=== PATIENT | female | born 1990 | race Caucasian/White ===

== ENCOUNTER 2020-09-06 06:05 | Inpatient (IN) | payer BC ==
--- NOTE | 2020-09-05 19:15 | P.HPOB ---
History of Present Illness H&P Date: 09/05/20 Chief Complaint: IUGR, Oligohydramnios This is a 30 y.o. female, 1, para 0, with an estimated date of confinement of 09/27/2020, estimated gestational age of 37-0/7 weeks who presents for induction of labor due to asymmetric IUGR and oligohydramnios. She was diagnosed with an MARY JO of 6 cm about 2 weeks ago, and it went down to 5 cm this past week. There is a concern for asymmetric IUGR with head measurments greater than 2 SD less than expected. Last US showed EFW of 5#8oz(23%). She has done NSTs and feels good kick counts. labs: Hepatitis B surface antigen-neg RPR-NR Rubella-immune Blood type- O+ Antibody screen-neg HIV-NR Hemoglobin-13.4 Random glucose-78 Quad-neg GBS-neg 1 hr. GTT-98 Review of Systems Constitutional: Denies chills, Denies fever Ears, nose, mouth and throat: Denies headache, Denies sore throat Cardiovascular: Denies chest pain, Denies shortness of breath Respiratory: Denies cough Genitourinary: Reports pelvic pain, Reports , Denies dysuria, Denies hematuria Musculoskeletal: Reports low back pain, Denies myalgias Integumentary: Denies pruritus, Denies rash Neurological: Denies numbness, Denies weakness Endocrine: Denies fatigue, Denies weight change Past Medical History Past Medical History: No Reported History History of Any Multi-Drug Resistant Organisms: None Reported Past Surgical History: No Surgical Hx Reported Past Anesthesia/Blood Transfusion Reactions: No Reported Reaction Past Psychological History: No Psychological Hx Reported Smoking Status: Never smoker Past Alcohol Use History: None Reported Past Drug Use History: None Reported - Past Family History Mother Family Medical History: No Reported History Medications and Allergies Home Medications Medication Instructions Recorded Confirmed Type Wkw-Rspw-Gccij Acid 1 cap PO DAILY 09/05/20 09/05/20 History [-U Capsule (formulary)] Allergies Allergy/AdvReac Type Severity Reaction Status Date / Time No Known Allergies Allergy Verified 09/05/20 19:12 Exam Osteopathic Statement: *. No significant issues noted on an osteopathic structural exam other than those noted in the History and Physical/Consult. HEENT: within normal limits Heart: regular rate and rhythm Lungs: clear to auscultation bilaterally Abdomen: Cervix: 1 cm/70%/-2 FHTs: 140's by doppler Extremities: neg. Homans. Assessment and Plan (1) with 37 weeks completed gestation Status: Acute Code(s): Z3A.37 - 37 WEEKS GESTATION OF SNOMED Code(s): 31965965 (2) IUGR (intrauterine growth restriction) Status: Acute Code(s): [id number] - SNOMED Code(s): 50231931 Plan: Proceed with oxytocin induction of labor. Expectant management. Epidural anesthesia if desired.
[2020-09-06] MEDS ORDERED: OXYTOCIN 10 UNIT/ML 1 ML VIAL IM PRN (06:34)
[2020-09-06] MEDS ORDERED: CARBOPROST TROMETHAMINE 250 MCG/ML 1 ML AMP IM PRN (06:34)
[2020-09-06] MEDS ORDERED: LIDOCAINE 1% (10MG/ML) FOR IV START INTRADERMA PRN (06:34)
[2020-09-06] MEDS ORDERED: OXYTOCIN 30 UNITS/500 ML NS 30 UNIT in SALINE 1 500ML.BAG IV SCH ×2 (06:34→16:59)
[2020-09-06] MEDS ORDERED: METHYLERGONOVINE 0.2 MG/ML 1 ML AMP IM PRN (06:34)
[2020-09-06] MEDS ORDERED: LIDOCAINE 0.5% (PF) 5 MG/ML (50 ML SDV) SQ PRN (06:34)
[2020-09-06] MEDS ORDERED: TERBUTALINE 1 MG/ML VIAL SQ PRN (06:34)
[2020-09-06 06:49] LABS: Basophils # (A) 0.1 k/uL (0-0.2); Basophils % (A) 0 %; Eosinophils # (A) 0.2 k/uL (0-0.7); Eosinophils % (A) 1 %; HCT 34.4 % (34.0-46.0); HGB 12.3 gm/dL (11.4-16.0); Lymphocytes # (A) 2.8 k/uL (1.0-4.8); Lymphocytes % (A) 19 %; MCH 31.3 pg (25.0-35.0); MCHC 35.6 g/dL (31.0-37.0); MCV 87.8 fL (80.0-100.0); Mean Platelet Volume 8.5; Monocytes % (A) 7 %; Neutrophils # (A) 10.8 k/uL (1.3-7.7); Neutrophils % (A) 72 %; Platelet Count 225 k/uL (150-450); RBC 3.92 m/uL (3.80-5.40); RDW 12.6 % (11.5-15.5); WBC 14.9 k/uL (3.8-10.6)
[2020-09-06] MEDS: LACTATED RINGERS 1,000 ML IV SCH ×3 (06:50→15:33)
[2020-09-06] MEDS ORDERED: fentaNYL (PF) 50 MCG/ML 5 ML AMP ONE (13:55)
[2020-09-06] MEDS ORDERED: ROPIVACAINE 5MG/ML 20ML VIAL ONE (13:55)
[2020-09-06] MEDS ORDERED: SODIUM CHLORIDE 0.9% 100 ML BAG ONE (13:55)
[2020-09-06] MEDS ORDERED: diphenhydrAMINE 25 MG CAP PO PRN (16:59)
[2020-09-06] MEDS ORDERED: ZOLPIDEM 5 MG TAB PO PRN (16:59)
[2020-09-06] MEDS ORDERED: LANOLIN CREAM 5 GM TUBE TOPICAL PRN (16:59)
[2020-09-06] MEDS ORDERED: diphenhydrAMINE 50 MG/ML 1 ML VIAL IVP PRN ×2 (16:59)
[2020-09-06] MEDS ORDERED: BENZOCAINE/MENTHOL SPRAY 1 GM/SPRAY AEROSOL TOPICAL PRN (16:59)
[2020-09-06] MEDS ORDERED: SIMETHICONE 80 MG CHEWABLE PO PRN (16:59)
[2020-09-06] MEDS ORDERED: ACETAMINOPHEN TAB 325 MG TAB PO PRN (16:59)
[2020-09-06] MEDS ORDERED: HYDROCORTISONE 2.5% RECTAL CREAM 30 GM TUBE RECTAL PRN (16:59)
[2020-09-06] MEDS ORDERED: diphenhydrAMINE 50 MG CAP PO PRN (16:59)
--- NOTE | 2020-09-06 17:20 | P.PROBDLV ---
Vaginal Delivery Note - . Vaginal Delivery Note: The patient progressed to complete dilation after oxytocin induction of labor and artificial rupture of membranes with clear fluid noted. She did receive epidural anesthesia while in labor. Once reaching complete, she began pushing. Infant's head came to a crown. With one further push, the 's head delivered across the perineum followed by the anterior shoulder. Nose and mouth were bulb suctioned. With one remaining push the remainder the easily de livered and was placed on mother's abdomen. Cord was clamped and cut and infant was taken to warmer for evaluation. A viable male is noted with scores of 7 at 1 minute and 9 at 5 minutes and weight of 5 lbs. 3 oz. Of note there is a cleft lip noted. This was not previously visualized on her anatomy scan at 19 weeks. Uterus contracted well after oxytocin was given and uterine massage was carried out. Inspection of the perineum revealed a small second-degree perineal laceration. This area was anesthetized with 1% lidocaine and then sutured with 3-0 Vicryl suture in the usual multilayer fashion. Estimated blood loss is approximately 200 mL's. Mother and are in stable condition. will be evaluated by lithographic artist due to the cleft lip.
[2020-09-06] MEDS: SENNOSIDES-DOCUSATE SODIUM 1 EACH TAB PO SCH (22:36)
[2020-09-06] MEDS: PRENATAL VIT-IRON-FOLIC ACID 1 EACH CAP PO SCH (22:37)
[2020-09-06] MEDS: IBUPROFEN 600 MG TAB PO SCH (22:37)
[2020-09-07] MEDS: IBUPROFEN 600 MG TAB PO SCH ×2 (05:33→14:34)
[2020-09-07 05:50] LABS: Basophils % (A) 0 %; Eosinophils # (A) 0.1 k/uL (0-0.7); Eosinophils % (A) 1 %; HCT 32.5 % (34.0-46.0); HGB 11.3 gm/dL (11.4-16.0); Lymphocytes % (A) 11 %; MCH 30.5 pg (25.0-35.0); MCHC 34.7 g/dL (31.0-37.0); Mean Platelet Volume 8.5; Monocytes # (A) 1.5 k/uL (0-1.0); Monocytes % (A) 8 %; Neutrophils # (A) 15.7 k/uL (1.3-7.7); Neutrophils % (A) 81 %; Platelet Count 212 k/uL (150-450); RBC 3.69 m/uL (3.80-5.40); RDW 12.5 % (11.5-15.5); WBC 19.5 k/uL (3.8-10.6)
--- NOTE | 2020-09-07 08:27 | P.PNOBGVD ---
Subjective - Subjective Principal diagnosis: Status post vaginal delivery day #1 Interval history: Patient is doing okay. She is a little emotional this morning. Baby has not been feeding well. Lochia is decreasing. Pain is minimal. Patient reports: Reports appetite normal, Reports voiding normally, Reports pain well controlled, Reports ambulating normally : bottle feeding Objective - Latest Vital Signs Latest vital signs: Vital Signs Temp Pulse Resp BP Pulse Ox 09/07/20 03:46 98.0 F 78 16 128/70 09/07/20 00:00 98.5 F 84 16 131/78 09/06/20 20:55 98.1 F 73 16 123/75 99 09/06/20 18:00 76 18 119/69 09/06/20 17:45 81 18 119/70 09/06/20 17:30 69 18 112/68 09/06/20 17:15 63 16 117/64 09/06/20 17:00 76 18 117/64 09/06/20 16:45 78 18 120/64 09/06/20 16:30 81 18 117/63 09/06/20 16:15 98.4 F 87 18 125/67 Intake and Output 09/06/20 09/07/20 09/07/20 22:59 06:59 14:59 Output Total 200 Balance -200 Output: Estimated Blood Loss 200 Other: # Voids 2 1 - Exam Extremities: Present: normal. Absent: tenderness Abdomen: Present: normal appearance, soft. Absent: distention, tenderness Uterus: Present: normal, firm. Absent: tenderness - Labs Labs: Abnormal Lab Results - Last 24 Hours (Table) 09/07/20 Range/Units 05:26 WBC 19.5 H (3.8-10.6) k/uL RBC 3.69 L (3.80-5.40) m/uL Hgb 11.3 L (11.4-16.0) gm/dL Hct 32.5 L (34.0-46.0) % Neutrophils # 15.7 H (1.3-7.7) k/uL Monocytes # 1.5 H (0-1.0) k/uL Assessment and Plan Assessment: Status post vaginal delivery day #1 (1) with 37 weeks completed gestation Current Visit: No Status: Acute Code(s): Z3A.37 - 37 WEEKS GESTATION OF SNOMED Code(s): 15332631 (2) IUGR (intrauterine growth restriction) Current Visit: No Status: Acute Code(s): [id number] - SNOMED Code(s): 94958529 Plan: Continue post care today. Will work on feeding today. Anticipate discharge home tomorrow.
[2020-09-07] MEDS: SENNOSIDES-DOCUSATE SODIUM 1 EACH TAB PO SCH (08:37)
[2020-09-07] MEDS: PRENATAL VIT-IRON-FOLIC ACID 1 EACH CAP PO SCH (08:38)
--- NOTE | 2020-09-07 13:25 | P.DS ---
Providers Date of admission: 09/06/20 06:05 Expected date of discharge: 09/07/20 Attending physician: Sara Hood Primary care physician: Stated None - Discharge Diagnosis(es) (1) with 37 weeks completed gestation Current Visit: No Status: Acute (2) IUGR (intrauterine growth restriction) Current Visit: No Status: Acute Hospital Course: This is a 30-year-old female 1 para 0 at 37-0/7 weeks who presented for induction of labor secondary to oligohydramnios and asymmetric intrauterine growth restriction. She underwent oxytocin induction of labor and delivered vaginally a viable male on 09/06/2020 with scores of 7 at 1 minute and 9 at 5 minutes and weight of 5 lbs. 3 oz. Baby was diagnosed with a cleft lip after delivery. He has had some feeding issues and is currently being transferred to [facility]. Moms bleeding has been minimal. Her pain is been well controlled with ibuprofen. Vital signs are stable. Abdomen is soft with fundus firm and nontender. Extremities show negative Homans. Impression is status post vaginal delivery day #1. Plan is to discharge home today. Routine instructions are given. She is advised follow-up in the office in 6 weeks for a check. She is advised to call the office if she has any further questions or concerns prior to her appointment time. She will be given a prescription for ibuprofen. She is planning to bottlefeed. Procedures: Oxytocin induction of labor Spontaneous vaginal delivery of a viable male on 09/06/2020 Patient Condition at Discharge: Stable Plan - Discharge Summary New Discharge Prescriptions: New Ibuprofen [Motrin] 600 mg PO Q6H #60 tab No Action Dbj-Ghln-Wfcvm Acid [-U Capsule (formulary)] 1 cap PO DAILY Discharge Medication List Cye-Kvzt-Xscur Acid [-U Capsule (formulary)] 1 cap PO DAILY 09/05/20 [History] Ibuprofen [Motrin] 600 mg PO Q6H #60 tab 09/07/20 [Rx] Follow up Appointment(s)/Referral(s): Sara Hood DO [Doctor of Osteopathic Medicine] - 10/26/20 11:30 am Activity/Diet/Wound Care/Special Instructions: Instructions 1. Do not begin any exercise program for 3 weeks. 2. Do not resume sexual relations for 3 weeks or longer if uncomfortable. 3. You may take tub baths or showers at any time. 4. You may use tampons if desired after 3 weeks. 5. Keep the area of episiotomy (stitches) clean and dry. 6. If you are not nursing, wear a good fitting, supportive bra during the day and limit fluid intake for at least 1 week to prevent breast engorgement. 7. Call the office, [phone], within the next week to make appointment for your 6 week checkup if it has not already been made. 8. Report any of the following occurrences to the doctor promptly: a. Heavy, excessive bleeding b. Chills, fever c. Burning or frequency of urination d. Pain or redness and breasts if nursing e. Increasing pain or swelling in episiotomy (stitches). In addition to the above instructions, the following additional should be followed: 1. No heavy lifting or straining (exercising) until after 6 week checkup. 2. Keep abdominal incision clean and dry: You may wear a dressing if more comfortable. 3. Make office appointment for 10 days after going home or as instructed by her doctor. Discharge Disposition: HOME SELF-CARE
[2020-09-07 14:34] VITALS: BP 128/80; PULSE 72; RESP 16; TEMP 98.1
== END 2020-09-07 15:55 | disposition home or self-care (01) | DRG 807 ==
LOC: 4FBP 06:05
PROVIDERS: ADMIT Obstetrics & Gynecology; ATTEND Obstetrics & Gynecology
PROC: 10E0XZZ Delivery of Products of Conception, External Approach (ICD-10-PCS; principal; 2020-09-06)
PROC: 0KQM0ZZ Repair Perineum Muscle, Open Approach (ICD-10-PCS; 2020-09-06)
DX: O41.03X0 Oligohydramnios, third trimester, not applicable or unspecified (principal); Z37.0 Single live birth; O36.5930 Maternal care for other known or suspected poor fetal growth, third trimester, not applicable or unspecified; O70.1 Second degree perineal laceration during delivery; Z3A.37 37 weeks gestation of pregnancy
CPT/HCPCS: 85025; 86850; 86900; 86901; 88307